=== PATIENT | female | born 1965 | race Caucasian/White ===

== ENCOUNTER 2020-10-20 10:30 | Observation (INO) | payer BC ==
[~2020-10-20 10:30] MED LIST: Acetaminophen 1,000 MG in Premix Bag 1 BAG IV ONE; Lactated Ringers 1,000 ML IV SCH; Propofol 200 MG/20 ML SDV ONE; cefOXitin 2 GM in Premix Bag 1 BAG IV ONE
[2020-10-20] MEDS ORDERED: Propofol 200 MG/20 ML SDV ONE (10:39)
[2020-10-20] MEDS ORDERED: fentaNYL 100 MCG/2 ML SDV ONE ×2 (10:39→11:52)
[2020-10-20] MEDS ORDERED: Midazolam 1 MG/ML 2 ML SDV ONE (10:40)
[2020-10-20] MEDS: Pregabalin 75 MG Cap PO SCH (10:40)
[2020-10-20] MEDS ORDERED: Acetaminophen 1,000 MG in Premix Bag 1 BAG IV ONE ×2 (10:45→15:15)
--- NOTE | 2020-10-20 11:31 | PCM.PREANE ---
Preanesthetic Assessment - Anesthesia/Transfusion/Family Hx Anesthesia History: Prior Anesthesia Without Reaction Family History of Anesthesia Reaction: No Transfusion History: No Prior Transfusion(s) Intubation History: Unknown - Review of Systems General: No Symptoms Pulmonary: No Symptoms Cardiovascular: No Symptoms Gastrointestinal: No Symptoms Neurological: No Symptoms Other: Reports: None - Physical Assessment Vital Signs: Last Vital Signs Temp Pulse 81 10/20/20 10:40 Resp 16 10/20/20 10:40 BP 164/87 H 10/20/20 11:10 Pulse Ox 96 10/20/20 10:40 Height: 5 ft 1 in Weight: 125.192 kg ASA Class: 3 Mental Status: Alert & Oriented x3 Airway Class: Mallampati = 2 Dentition: Reports: Normal Dentition Thyro-Mental Finger Breadths: 3 Mouth Opening Finger Breadths: 3 ROM/Head Extension: Full Lungs: Clear to Auscultation, Normal Respiratory Effort Cardiovascular: Regular Rate, Regular Rhythm - Lab Values: Laboratory Last Values Urine HCG, Qual NEGATIVE (NEGATIVE) 10/20/20 10:28 - Allergies Allergies/Adverse Reactions: Allergies Allergy/AdvReac Type Severity Reaction Status Date / Time No Known Allergies Allergy Verified 10/20/20 11:26 - Blood Blood Available: No - Anesthesia Plan Pre-Op Medication Ordered: None - Acknowledgements Anesthesia Type Planned: General Anesthesia Pt an Appropriate Candidate for the Planned Anesthesia: Yes Alternatives and Risks of Anesthesia Discussed w Pt/Guardian: Yes Pt/Guardian Understands and Agrees with Anesthesia Plan: Yes PreAnesthesia Questionnaire HEENT History: Reports: Other (See Below) Other HEENT History: wears glasses for driving and reading Cardiovascular History: Reports: Hypertension Respiratory History: Reports: Sleep Apnea Other Respiratory History: uses CPAP Gastrointestinal History: Reports: None Genitourinary History: Reports: None 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: Reports: Polycystic Ovaries, Musculoskeletal History: Reports: Fracture Neurological History: Reports: None Psychiatric History: Reports: None Endocrine/Metabolic History: Reports: Hypothyroidism, Obesity/BMI 30+ (BMI 52.1), Other (See Below) Other Endocrine/Metabolic History: prediabetic Hematologic History: Reports: None Immunologic History: Reports: None Oncologic (Cancer) History: Reports: None Dermatologic History: Reports: Other (See Below) Other Dermatologic History: open draining abd wound - Past Surgical History Head Surgeries/Procedures: Reports: None HEENT Surgical History: Reports: None Cardiovascular Surgical History: Reports: None Respiratory Surgical History: Reports: None GI Surgical History: Reports: Cholecystectomy, Hernia, Abdominal Other GI Surgeries/Procedures: hx ventral hernia repair Female Surgical History: Reports: Section Endocrine Surgical History: Reports: None Neurological Surgical History: Reports: None Musculoskeletal Surgical History: Reports: Arthroscopic Knee, Other (See Below) Other Musculoskeletal Surgeries/Procedures:: sx for fx right ankle Oncologic Surgical History: Reports: None Dermatological Surgical History: Reports: None - SUBSTANCE USE Tobacco Use Status *Q: Former Tobacco User Tobacco Use Within Last Twelve Months: No - HOME MEDS Home Medications: Home Meds Levothyroxine Sodium [Synthroid] 2 tab PO DAILY 10/15/20 [History] Losartan Potassium 100 mg PO DAILY 10/15/20 [History] Metoprolol Tartrate 50 mg PO BID 10/15/20 [History] hydroCHLOROthiazide [Hydrochlorothiazide] 25 mg PO DAILY 10/15/20 [History] metFORMIN HCl [Metformin HCl] 1,000 mg PO BID 10/15/20 [History] - CURRENT (IN HOUSE) MEDS Current Meds: Current Medications Lactated Ringer's (Ringers, Lactated) 1,000 mls @ 125 mls/hr IV ASDIRECTED [facility] Last Admin: 10/20/20 11:10 Dose: 125 mls/hr Documented by: Pregabalin (Lyrica) 150 mg PO DAILY [facility] Last Admin: 10/20/20 10:40 Dose: 150 mg Documented by: Discontinued Medications Fentanyl (Sublimaze) Confirm Administered Dose 100 mcg .ROUTE .STK-MED ONE Stop: 10/20/20 10:40 Cefoxitin Sodium 2 gm/ Premix 50 mls @ 100 mls/hr IV ONETIME ONE Stop: 10/19/20 10:56 Acetaminophen 1,000 mg/ Premix 100 mls @ 400 mls/hr IV NOW ONE Stop: 10/20/20 10:59 Last Admin: 10/20/20 11:10 Dose: 400 mls/hr Documented by: Lidocaine HCl (Xylocaine-Mpf 1%) Confirm Administered Dose 5 ml .ROUTE .STK-MED ONE Stop: 10/20/20 10:41 Midazolam HCl (Versed 1 Mg/Ml) Confirm Administered Dose 2 mg .ROUTE .STK-MED ONE Stop: 10/20/20 10:41 Propofol (Diprivan 20 Ml) Confirm Administered Dose 200 mg .ROUTE .STK-MED ONE Stop: 10/20/20 09:31 Propofol (Diprivan 20 Ml) Confirm Administered Dose 200 mg .ROUTE .STK-MED ONE Stop: 10/20/20 10:40
[2020-10-20] MEDS ORDERED: Bupivacaine 0.5% 10 ML SDV ONE (11:39)
[2020-10-20] MEDS ORDERED: Octyl 2-Cyanoacrylate 1 Tube ONE ×2 (11:39→11:50)
[2020-10-20] MEDS ORDERED: Scopolamine 1.5 MG Transdermal Patch ONE (11:44)
[2020-10-20] MEDS ORDERED: Succinylcholine/Sod PF 100 MG/5 ML SYRINGE IV ONE (11:49)
[2020-10-20] MEDS ORDERED: Rocuronium Bromide 50 MG/5 ML Syringe ONE (11:49)
[2020-10-20] MEDS ORDERED: Bupivacaine 25%/EPINEPHrine/PF 30 ML ONE (11:50)
[2020-10-20] MEDS ORDERED: Heparin Sodium 5,000 Units/ML Vial ONE (12:07)
[2020-10-20] MEDS ORDERED: ePHEDrine 50 MG/ML SDV ONE (12:41)
[2020-10-20] MEDS ORDERED: Naloxone 0.4 MG/ML Syringe IVPUSH PRN (13:39)
[2020-10-20] MEDS ORDERED: Albuterol 0.083% 2.5 MG/3 ML Neb Soln NEB PRN (13:39)
[2020-10-20] MEDS ORDERED: EPINEPHrine 1:10,000 1 MG/10 ML Syringe IVPUSH PRN (13:39)
[2020-10-20] MEDS ORDERED: 50% Dextrose in Water 50 ML Syringe IVPUSH PRN (13:39)
[2020-10-20] MEDS ORDERED: fentaNYL 100 MCG/2 ML SDV IVPUSH PRN (13:39)
[2020-10-20] MEDS ORDERED: Atropine 0.1 MG/ML 10 ML Syringe IVPUSH PRN ×2 (13:39)
[2020-10-20] MEDS ORDERED: Ondansetron 4 MG/2 ML SDV IVPUSH PRN ×2 (13:42→15:14)
[2020-10-20] MEDS ORDERED: HYDROmorphone 2 MG/ML Syringe IVPUSH PRN (13:42)
[2020-10-20] MEDS ORDERED: HYDROmorphone 2 MG/ML Syringe ONE (14:20)
[2020-10-20] MEDS ORDERED: Glycopyrrolate 0.2 MG/ML SDV ONE (14:30)
[2020-10-20] MEDS ORDERED: Ketorolac 30 MG/ML SDV ONE (14:31)
--- NOTE | 2020-10-20 15:14 | PCM.OPNOTE ---
- General Post-Op/Procedure Note Date of Surgery/Procedure: 10/20/20 Operative Procedure(s): Small bowel resection, removal of chronic granulation tissue/abscess, repair of recurrent ventral hernia. Findings: abscess cavity with mesh in the middle. Small bowel also involved in the abscess cavity. 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
--- NOTE | 2020-10-20 16:27 | PCM.POSTAN ---
POST ANESTHESIA ASSESSMENT - MENTAL STATUS Mental Status: Alert, Oriented - VITAL SIGNS Vital Signs: Last Vital Signs Temp Pulse 63 10/20/20 16:09 Resp 19 10/20/20 16:09 BP 107/50 L 10/20/20 16:09 Pulse Ox 96 10/20/20 16:09 - RESPIRATORY Respiratory Status: Respiratory Rate WNL, Airway Patent, O2 Saturation Stable - CARDIOVASCULAR CV Status: Pulse Rate WNL, Blood Pressure Stable - GASTROINTESTINAL GI Status: No Symptoms - PAIN Pain Score: 4 - POST OP HYDRATION Hydration Status: Adequate & Stable - OBSERVATIONS Free Text/Narrative:: No anesthesia problems
[2020-10-20] MEDS: cefOXitin 2 GM in Premix Bag 1 BAG IV SCH ×2 (17:25→21:48)
[2020-10-20] MEDS ORDERED: 50% Dextrose in Water 50 ML Syringe IV PRN (17:35)
[2020-10-20] MEDS ORDERED: Glucagon,Human Recombinant 1 MG Vial IM PRN (17:35)
--- NOTE | 2020-10-20 17:45 | PCM.CONS ---
H&P History of Present Illness - General Date of Service: 10/20/20 Admit Problem/Dx: Admission Diagnosis/Problem Admission Diagnosis/Problem Abscess of abdominal wall Source of Information: Patient History Limitations: Reports: No Limitations - History of Present Illness Initial Comments - Free Text/Narative: 55-year-old female s/p recurrent ventral hernia repair, removal of infected mesh and partial colectomy POD#0. She has a PMH of DM type 2, HTN and hypothyroidism. Patient reports having an umbilical hernia repair approximately 10 years ago in [place]. For the past 5 years she has had occasional umbilical foul-smelling drainage. CT abd/pelvis showed recurrent hernia above the prior repair as well as a 3.2 cm x 2.8 cm rim enhancing fluid collection draining near the umbilicus. Prior mesh placement also appeared to be in the abscess/fluid collection. Patient was seen at bedside today post-operatively and had no complaints at this time. Patient did not complain of any fevers, chills, SOB, chest pain, nausea, vomiting, numbness or tingling in extremities. - Related Data Allergies/Adverse Reactions: Allergies Allergy/AdvReac Type Severity Reaction Status Date / Time No Known Allergies Allergy Verified 10/20/20 11:26 Home Medications: Home Meds Levothyroxine Sodium [Synthroid] 2 tab PO DAILY 10/15/20 [History] Losartan Potassium 100 mg PO DAILY 10/15/20 [History] Metoprolol Tartrate 50 mg PO BID 10/15/20 [History] hydroCHLOROthiazide [Hydrochlorothiazide] 25 mg PO DAILY 10/15/20 [History] metFORMIN HCl [Metformin HCl] 1,000 mg PO BID 10/15/20 [History] Past Medical History HEENT History: Reports: Other (See Below) Other HEENT History: wears glasses for driving and reading Cardiovascular History: Reports: Hypertension Respiratory History: Reports: Sleep Apnea Other Respiratory History: uses CPAP Gastrointestinal History: Reports: None Genitourinary History: Reports: None 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: Polycystic 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, Musculoskeletal History: Reports: Fracture Neurological History: Reports: None Psychiatric History: Reports: None Endocrine/Metabolic History: Reports: Hypothyroidism, Obesity/BMI 30+ (BMI 52.1), Other (See Below) Other Endocrine/Metabolic History: prediabetic Hematologic History: Reports: None Immunologic History: Reports: None Oncologic (Cancer) History: Reports: None Dermatologic History: Reports: Other (See Below) Other Dermatologic History: open draining abd wound - Past Surgical History Head Surgeries/Procedures: Reports: None HEENT Surgical History: Reports: None Cardiovascular Surgical History: Reports: None Respiratory Surgical History: Reports: None GI Surgical History: Reports: Cholecystectomy, Hernia, Abdominal Other GI Surgeries/Procedures: hx ventral hernia repair Female Surgical History: Reports: Section Endocrine Surgical History: Reports: None Neurological Surgical History: Reports: None Musculoskeletal Surgical History: Reports: Arthroscopic Knee, Other (See Below) Other Musculoskeletal Surgeries/Procedures:: sx for fx right ankle Oncologic Surgical History: Reports: None Dermatological Surgical History: Reports: None Social & Family History - Tobacco Use Tobacco Use Status *Q: Former Tobacco User Years of Tobacco use: 20 Used Tobacco, but Quit: Yes Month/Year Tobacco Last Used: quit smoking over 8 years ago - Recreational Drug Use Drug Use in Last 12 Months: No H&P Review of Systems - Review of Systems: Review Of Systems: See Below Exam - Exam Exam: See Below - Vital Signs Vital Signs: Last Vital Signs Temp Pulse 63 10/20/20 16:09 Resp 19 10/20/20 16:09 BP 107/50 L 10/20/20 16:09 Pulse Ox 96 10/20/20 17:00 Weight: 125.192 kg - Exam General: Alert, Oriented, Cooperative, Other (NAD) HEENT: Conjunctiva Clear, EOMI, Hearing Intact, Pupils Equal Lungs: Clear to Auscultation, Normal Respiratory Effort Cardiovascular: Regular Rate, Regular Rhythm GI/Abdominal Exam: Normal Bowel Sounds, Soft, No Distention, Other (LAWSON drain in place, abdominal binder in place) (Female) Exam: Other (Doss catheter) Extremities: Normal Inspection, No Pedal Edema Peripheral Pulses: 2+: Radial (L), Radial (R) Skin: Warm, Dry, Intact Neurological: Cranial Nerves Intact, Strength Equal Bilateral, Normal Speech, Normal Tone Neuro Extensive - Mental Status: Alert, Oriented x3, Normal Mood/Affect - Patient Data Lab Results Last 24 hrs: Laboratory Results - last 24 hr 10/20/20 10/20/20 10/20/20 Range/Units 10:28 11:09 11:50 POC Glucose 108 (60-110) mg/dL Urine HCG, Qual NEGATIVE (NEGATIVE) Blood Type A POSITIVE Antibody Screen NEGATIVE 10/20/20 Range/Units 15:46 POC Glucose 131 H (60-110) mg/dL Urine HCG, Qual (NEGATIVE) Blood Type Antibody Screen Sepsis Event Note - Focused Exam Vital Signs: Vital Signs Pulse Resp BP Pulse Ox Pulse Ox Pulse Ox 10/20/20 17:00 96 96 10/20/20 16:09 63 19 107/50 L 96 10/20/20 16:04 62 19 116/49 L 97 10/20/20 15:59 65 22 H 116/57 L 98 10/20/20 15:53 60 15 109/57 L 98 10/20/20 15:49 71 16 118/54 L 97 10/20/20 15:43 75 12 112/51 L 97 10/20/20 15:39 72 20 109/54 L 98 10/20/20 15:34 81 16 104/54 L 97 10/20/20 15:29 62 15 104/57 L 95 10/20/20 15:24 65 20 126/70 95 10/20/20 15:18 68 24 H 127/67 96 10/20/20 15:13 62 21 H 121/67 96 10/20/20 11:10 164/87 H 10/20/20 10:40 81 16 167/103 H 96 Consult PN Assessment/Plan Procedures: Procedures ASSAY THYROID STIM HORMONE (10/14/20) COMPLETE CBC W/AUTO DIFF WBC (10/14/20) COMPREHEN METABOLIC PANEL (10/14/20) CT ABD & PELV W/CONTRAST (09/23/20) CT ABDOMEN W/O & W/DYE (07/01/20) CULTURE AEROBIC IDENTIFY (09/16/20) CULTURE OTHR SPECIMN AEROBIC (09/16/20) GLYCOSYLATED HEMOGLOBIN TEST (01/20/20) LIPID PANEL (01/20/20) METABOLIC PANEL TOTAL CA (06/28/20) MICROBE SUSCEPTIBLE MILAD (09/16/20) ROUTINE VENIPUNCTURE (10/14/20) SARS-COV-2 COVID-19 AMP PRB (10/16/20) SMEAR GRAM STAIN (07/15/20) TISSUE EXAM BY PATHOLOGIST (09/09/20) URINALYSIS AUTO W/O SCOPE (10/14/20) URINE BACTERIA CULTURE (07/15/20) X-RAY EXAM CHEST 2 VIEWS (02/03/21) Problem List Initiated/Reviewed/Updated: Yes My Orders Last 24 Hours: My Active Orders 10/20/20 17:35 Dextrose 50% in Water 50 ml IV ASDIRECTED PRN Glucagon,Human Recombinant [GlucaGen] 1 mg IM ASDIRECTED PRN 10/21/20 07:30 Insulin Aspart [NovoLOG] See Protocol SUBCUT TIDAC Plan: Assessment and Plan: 1. S/P recurrent ventral hernia repair, removal of infected mesh and partial colectomy POD#0: - Continue management per general surgery. Patient currently on clear liquid diet. 2. Diabetes mellitus type II: - Will hold metformin. Patient on SSI and accuchecks TIDAC. Will check HgbA1c. 3. Past medical history of HTN and hypothyroidism: - Resume home medications tomorrow. 4. DVT prophylaxis: - Lovenox 30 mg subcut qd per general surgery.
--- NOTE | 2020-10-20 19:53 | OR ---
SURGEON: DONATO HART MD DATE OF PROCEDURE: 10/20/2020 PREOPERATIVE DIAGNOSES: Chronic abscess cavity and likely infected mesh. POSTOPERATIVE DIAGNOSES: Chronic abscess cavity and likely infected mesh. PROCEDURES PERFORMED: 1. Small bowel resection. 2. Removal of chronic granulation/abscess tissue. 3. Primarily repairing recurrent ventral hernia. PRIMARY SURGEON: Donato Hart MD. YARN EXAMINER SKEINS: Laura Mims MD. ANESTHESIA: General. ESTIMATED BLOOD LOSS: 350. SPECIMENS: 1. Small bowel resection. 2. Mesh. 3. Chronic granulation abscess tissue. 4. Part of omentum. COMPLICATIONS: None. REASON FOR PROCEDURE: Patient is a pleasant 55-year-old female. She says about 9 to 10 years ago, she had an umbilical hernia repair that resulted in large seroma that sounds like needed to be packed. This healed, but then in the past 8 years, she will get chronic from umbilicus. This comes and goes, but has gotten much more frequent recently. Now, we did try to open up this chronic abscess, but on CT scan does look to have likely mesh involvement. The patient always had a possibility of a fistula formation too. The patient understands. I did go over with the patient again risks, goals, and alternatives of procedure. Risks include, but not limited to, bleeding, infection, dehiscence, recurrence, need for small bowel resection, possible loss of umbilicus, scar formation, seroma formation, hematoma. The patient understands and wishes to proceed. OPERATION NARRATIVE: The patient was brought back to the OR. She was prepped and draped in the usual sterile fashion. Doss catheter placed. SCDs placed. Heparin and preoperative antibiotics were given. Anesthesia provided by the Anesthesia team. After a time-out was performed, a midline incision was made around the umbilicus. A small elliptical incision was made to cut out the chronic granulation tissue underneath the skin underneath the umbilicus. This was carried down to the subcutaneous tissue. First, we dissected superiorly and the recurrent hernia was found. This was then cleared and the fascia around the hernia was cleared and down around where the chronic abscess was. Now, the abdominal cavity was entered through the hernia sac. The omentum was carefully taken down. Now with some very careful dissection, I was able to get the small bowel down from the anterior wall. The abscess cavity actually appeared to be involving the mesh and the small bowel was up against it forming part of the chronic abscess wall. As we opened up the cavity, the mesh actually came out fairly easily. It looks like it was a circular mesh that was sutured in place with multiple blue Prolenes. It looked we got most of these out and came out fairly easily. Now the small bowel was inspected. There was an area that was involved in the abscess cavity. This was fairly injured. It did appear to be potentially a small tear. Because of this, we decided to remove this section of small bowel. Small bowel was transected on both sides with a blue load linear stapler. The mesentery was taken with the LigaSure. There was good hemostasis. Now, the small enterotomies were made at the staple line on both ends, and another blue load linear stapler 55 was placed making a [id number] functional end-to-end anastomosis. Enterotomy was then closed with a running 3-0 Vicryl and a top layer of interrupted silks. 1 silk suture was placed for a crotch stitch and the mesenteric defect was also closed with silk. The small bowel appeared patent. There was good hemostasis. The bowel appeared viable and under no tension. Small bowel was then partially ran. No other small-bowel injury or defect was noted. There was some smaller adhesions that were taken down. Now, the small bowel was placed back into the abdominal cavity. The omentum that was up in the hernia defect was then transected with LigaSure and sent to pathology. Now, we did look at the thick scar/granulation tissue that had formed. This tissue was then thinned taking a majority of the chronic granulation scar tissue. I did enter our cavity that had purulent material. Again, this was completely removed and irrigated. This was sent to Pathology. Again, there still was some thick scar tissue, but it looked like we got most of the chronic infection and granulation tissue away. Now, the bowels were inspected one more time. The rest of the omentum was placed over the small bowel and the defect was then closed with multiple interrupted [id number]- Vicryl and scar tissue did appear to come together nicely with no tension. The cavity was then irrigated. Now, a LAWSON drain was placed in the subcutaneous tissue. Skin was then closed with jim and a NICHELLE dressing was placed over top. At the end of the case, sponge and needle counts were correct. The patient was transferred to recovery room in stable condition. KOBE BAHENA /[id number]
[2020-10-20] MEDS: HYDROmorphone 2 MG/ML Syringe IVPUSH PRN (21:08)
[2020-10-21] MEDS: HYDROmorphone 2 MG/ML Syringe IVPUSH PRN (03:52)
[2020-10-21] MEDS: cefOXitin 2 GM in Premix Bag 1 BAG IV SCH ×3 (03:53→15:39)
[2020-10-21 06:00] LABS: HEMOGLOBIN A1C 6.5 %
[2020-10-21 06:10] LABS: POTASSIUM,K 3.7 mmol/L (3.5-5.1)
[2020-10-21] MEDS ORDERED: LEVOTHYROXINE PO SCH ×2 (07:30)
--- NOTE | 2020-10-21 07:51 | PCM48HPAN ---
Post Anesthesia Note - EVALUATION WITHIN 48HRS OF ANESTHETIC Vital Signs in Normal Range: Yes Patient Participated in Evaluation: Yes Respiratory Function Stable: Yes Airway Patent: Yes Cardiovascular Function Stable: Yes Hydration Status Stable: Yes Pain Control Satisfactory: Yes (6/10 pain decreases to 2/10 with PO meds, satisfactory control) Nausea and Vomiting Control Satisfactory: Yes (Taking PO well, denies nausea) Mental Status Recovered: Yes Vital Signs: Last Vital Signs Temp 36.7 C 10/21/20 07:36 Pulse 83 10/21/20 07:36 Resp 20 10/21/20 07:36 BP 124/68 10/21/20 07:36 Pulse Ox 94 L 10/21/20 07:36
[2020-10-21] MEDS: Pregabalin 75 MG Cap PO SCH (08:13)
[2020-10-21] MEDS: Insulin Aspart 100 Units/ML 3 ML Pen SUBCUT SCH ×3 (08:15→16:49)
[2020-10-21] MEDS ORDERED: Losartan 50 MG Tab PO SCH (09:00)
[2020-10-21] MEDS ORDERED: Metoprolol Tartrate 50 MG Tab PO SCH (09:00)
[2020-10-21] MEDS ORDERED: Lactated Ringers 1,000 ML IV SCH (09:00)
[2020-10-21] MEDS ORDERED: Omeprazole 20 MG Cap.CR PO SCH (09:00)
[2020-10-21] MEDS ORDERED: Enoxaparin 30 MG/0.3 ML Syringe SUBCUT SCH (09:00)
[2020-10-21] MEDS ORDERED: Hydrochlorothiazide 25 MG Tab PO SCH (09:00)
[2020-10-21] MEDS ORDERED: LEVOTHYROXINE SODIUM PO SCH (09:00)
[2020-10-21] MEDS: Benzocaine/Cetylpyridinium/Menthol Lozenge MUCMEM PRN ×2 (09:37→15:39)
--- NOTE | 2020-10-21 11:25 | PN ---
SUBJECTIVE: The patient did well overnight. She has no complaints. She says her pain is well controlled. The patient did tolerate her clear liquid diet for supper and breakfast. No nausea and vomiting. She has not passed any flatus yet though. Doss is still in place. The patient has been up in chair. Overall, the patient feels very good and has no complaints. OBJECTIVE: GENERAL: The patient is lying comfortably in her hospital bed. She is alert and oriented, in no acute distress. VITAL SIGNS: Temperature is 98, pulse is 83, blood pressure is 124/68, saturating 94% on 2 L . LUNGS: Clear to auscultation bilaterally. No rhonchi or wheezing heard. HEART: Regular rhythm. No murmur appreciated. ABDOMEN: Soft, nondistended. Just some minimal incisional tenderness. NICHELLE dressing is intact. LAWSON with some serosanguineous output. Output from LAWSON drain was about 65 from surgery. ASSESSMENT AND PLAN: This is a pleasant 55-year-old female who underwent excision of a chronic infected abscess mesh yesterday with a small bowel resection. The patient is doing well. She is tolerating her diet. This will be advance as tolerated. The patient should ambulate today. Doss will come out and we will start oral pain medications. I did go over the surgery with the patient. I answered her questions. I went over when she is passing flatus and tolerating oral pain medicines hopefully home tomorrow or next day. Discussed with nursing staff. Appreciate Medicine consult. KOBE / SHRUTI /[id number]
[2020-10-21] MEDS: Acetaminophen/HYDROcodone 325-5 MG Tab PO PRN ×2 (11:45→15:39)
--- NOTE | 2020-10-21 12:28 | PCM.CONSN ---
- General Info Date of Service: 10/21/20 Subjective Update: No complaints at bedside this morning. Denies any fevers, chills, SOB, nausea, vomiting or pain. - Patient Data Vitals - Most Recent: Last Vital Signs Temp 36.7 C 10/21/20 11:15 Pulse 79 10/21/20 11:15 Resp 22 H 10/21/20 11:15 BP 108/68 10/21/20 11:15 Pulse Ox 94 L 10/21/20 11:15 Weight - Most Recent: 125.192 kg I&O - Last 24 Hours: Intake & Output 10/20/20 10/21/20 10/21/20 22:59 06:59 14:59 Intake Total 3600 1080 Output Total 285 925 Balance 3315 155 Lab Results Last 24 Hours: Laboratory Results - last 24 hr 10/20/20 10/20/20 10/20/20 Range/Units 11:09 11:50 15:46 WBC (4.0-11.0) K/uL RBC (4.30-5.90) M/uL Hgb (12.0-16.0) g/dL Hct (36.0-46.0) % MCV (80.0-98.0) fL MCH (27.0-32.0) pg MCHC (31.0-37.0) g/dL RDW Std Deviation (28.0-62.0) fl RDW Coeff of Hitesh (11.0-15.0) % Plt Count (150-400) K/uL MPV (7.40-12.00) fL Neut % (Auto) (48.0-80.0) % Lymph % (Auto) (16.0-40.0) % Placer % (Auto) (0.0-15.0) % Eos % (Auto) (0.0-7.0) % Baso % (Auto) (0.0-1.5) % Neut # (Auto) (1.4-5.7) K/uL Lymph # (Auto) (0.6-2.4) K/uL Placer # (Auto) (0.0-0.8) K/uL Eos # (Auto) (0.0-0.7) K/uL Baso # (Auto) (0.0-0.1) K/uL Nucleated RBC % /100WBC Nucleated RBCs # K/uL Sodium (136-145) mmol/L Potassium (3.5-5.1) mmol/L Chloride (98-107) mmol/L Carbon Dioxide (21.0-32.0) mmol/L BUN (7.0-18.0) mg/dL Creatinine (0.6-1.0) mg/dL Est Cr Clr Drug Dosing mL/min Estimated GFR (MDRD) ml/min Glucose (74-106) mg/dL POC Glucose 108 131 H (60-110) mg/dL Hemoglobin A1c (4.5 - 6.2) % Calcium (8.5-10.1) mg/dL Total Bilirubin (0.2-1.0) mg/dL AST (15-37) IU/L ALT (14-63) IU/L Alkaline Phosphatase (46-116) U/L Total Protein (6.4-8.2) g/dL Albumin (3.4-5.0) g/dL Globulin (2.6-4.0) g/dL Albumin/Globulin Ratio (0.9-1.6) Blood Type A POSITIVE Antibody Screen NEGATIVE 10/21/20 10/21/20 10/21/20 Range/Units 05:08 05:08 05:08 WBC 13.80 H (4.0-11.0) K/uL RBC 3.90 L (4.30-5.90) M/uL Hgb 11.2 L (12.0-16.0) g/dL Hct 34.9 L (36.0-46.0) % MCV 89.5 (80.0-98.0) fL MCH 28.7 (27.0-32.0) pg MCHC 32.1 (31.0-37.0) g/dL RDW Std Deviation 45.9 (28.0-62.0) fl RDW Coeff of Hitesh 14 (11.0-15.0) % Plt Count 270 (150-400) K/uL MPV 11.70 (7.40-12.00) fL Neut % (Auto) 87.7 H (48.0-80.0) % Lymph % (Auto) 5.7 L (16.0-40.0) % Placer % (Auto) 6.4 (0.0-15.0) % Eos % (Auto) 0.2 (0.0-7.0) % Baso % (Auto) 0.0 (0.0-1.5) % Neut # (Auto) 12.1 H (1.4-5.7) K/uL Lymph # (Auto) 0.8 (0.6-2.4) K/uL Placer # (Auto) 0.9 H (0.0-0.8) K/uL Eos # (Auto) 0.0 (0.0-0.7) K/uL Baso # (Auto) 0.0 (0.0-0.1) K/uL Nucleated RBC % 0.0 /100WBC Nucleated RBCs # 0 K/uL Sodium 139 (136-145) mmol/L Potassium 3.7 (3.5-5.1) mmol/L Chloride 103 (98-107) mmol/L Carbon Dioxide 29.0 (21.0-32.0) mmol/L BUN 13 (7.0-18.0) mg/dL Creatinine 1.0 (0.6-1.0) mg/dL Est Cr Clr Drug Dosing 47.97 mL/min Estimated GFR (MDRD) 57.6 ml/min Glucose 163 H (74-106) mg/dL POC Glucose (60-110) mg/dL Hemoglobin A1c 6.5 H (4.5 - 6.2) % Calcium 7.9 L (8.5-10.1) mg/dL Total Bilirubin 0.5 (0.2-1.0) mg/dL AST 14 L (15-37) IU/L ALT 23 (14-63) IU/L Alkaline Phosphatase 53 (46-116) U/L Total Protein 6.1 L (6.4-8.2) g/dL Albumin 2.5 L (3.4-5.0) g/dL Globulin 3.6 (2.6-4.0) g/dL Albumin/Globulin Ratio 0.7 L (0.9-1.6) Blood Type Antibody Screen 10/21/20 10/21/20 Range/Units 06:20 11:30 WBC (4.0-11.0) K/uL RBC (4.30-5.90) M/uL Hgb (12.0-16.0) g/dL Hct (36.0-46.0) % MCV (80.0-98.0) fL MCH (27.0-32.0) pg MCHC (31.0-37.0) g/dL RDW Std Deviation (28.0-62.0) fl RDW Coeff of Hitesh (11.0-15.0) % Plt Count (150-400) K/uL MPV (7.40-12.00) fL Neut % (Auto) (48.0-80.0) % Lymph % (Auto) (16.0-40.0) % Placer % (Auto) (0.0-15.0) % Eos % (Auto) (0.0-7.0) % Baso % (Auto) (0.0-1.5) % Neut # (Auto) (1.4-5.7) K/uL Lymph # (Auto) (0.6-2.4) K/uL Placer # (Auto) (0.0-0.8) K/uL Eos # (Auto) (0.0-0.7) K/uL Baso # (Auto) (0.0-0.1) K/uL Nucleated RBC % /100WBC Nucleated RBCs # K/uL Sodium (136-145) mmol/L Potassium (3.5-5.1) mmol/L Chloride (98-107) mmol/L Carbon Dioxide (21.0-32.0) mmol/L BUN (7.0-18.0) mg/dL Creatinine (0.6-1.0) mg/dL Est Cr Clr Drug Dosing mL/min Estimated GFR (MDRD) ml/min Glucose (74-106) mg/dL POC Glucose 144 H 148 H (60-110) mg/dL Hemoglobin A1c (4.5 - 6.2) % Calcium (8.5-10.1) mg/dL Total Bilirubin (0.2-1.0) mg/dL AST (15-37) IU/L ALT (14-63) IU/L Alkaline Phosphatase (46-116) U/L Total Protein (6.4-8.2) g/dL Albumin (3.4-5.0) g/dL Globulin (2.6-4.0) g/dL Albumin/Globulin Ratio (0.9-1.6) Blood Type Antibody Screen Med Orders - Current: Current Medications Hydrocodone Bitart/Acetaminophen ([place] 325-5 Mg) 1 - 2 tab PO Q4H PRN PRN Reason: Pain Last Admin: 10/21/20 11:45 Dose: 1 tab Documented by: Benzocaine/Menthol (Cepacol Sore Throat) 1 lozenge MUCMEM Q4HR PRN PRN Reason: Sore Throat Last Admin: 10/21/20 09:37 Dose: 1 lozenge Documented by: Dextrose/Water (Dextrose 50% In Water) 50 ml IV ASDIRECTED PRN PRN Reason: Hypoglycemia Enoxaparin Sodium (Lovenox) 30 mg SUBCUT DAILY [facility] Last Admin: 10/21/20 08:14 Dose: 30 mg Documented by: Glucagon (Glucagen) 1 mg IM ASDIRECTED PRN PRN Reason: Hypoglycemia Hydrochlorothiazide (Hydrochlorothiazide) 25 mg PO DAILY [facility] Last Admin: 10/21/20 08:13 Dose: 25 mg Documented by: Hydromorphone HCl (Dilaudid) 0.5 mg IVPUSH Q1H PRN PRN Reason: Pain (severe 7-10) Last Admin: 10/21/20 03:52 Dose: 0.5 mg Documented by: Cefoxitin Sodium 2 gm/ Premix 50 mls @ 100 mls/hr IV Q6H [facility] Last Admin: 10/21/20 11:32 Dose: 100 mls/hr Documented by: Lactated Ringer's (Ringers, Lactated) 1,000 mls @ 75 mls/hr IV ASDIRECTED [facility] Insulin Aspart (Novolog) 0 unit SUBCUT TIDAC [facility]; Protocol Last Admin: 10/21/20 11:32 Dose: Not Given Documented by: Levothyroxine Sodium 224 mcg/ (Levothyroxine Sodium 50 mcg) 274 mcg PO ACBREAKFAST [facility] Last Admin: 10/21/20 08:12 Dose: 274 mcg Documented by: Losartan Potassium (Cozaar) 100 mg PO DAILY [facility] Last Admin: 10/21/20 08:14 Dose: 100 mg Documented by: Metoprolol Tartrate (Lopressor) 50 mg PO BID [facility] Last Admin: 10/21/20 08:14 Dose: 50 mg Documented by: Omeprazole (Omeprazole) 20 mg PO DAILY [facility] Last Admin: 10/21/20 08:13 Dose: 20 mg Documented by: Ondansetron HCl (Zofran) 4 mg IVPUSH Q6H PRN PRN Reason: Nausea/Vomiting Discontinued Medications Albuterol (Proventil Neb Soln) 2.5 mg NEB ONETIME PRN PRN Reason: Wheezing Atropine Sulfate (Atropine 0.1 Mg/Ml) 0.5 mg IVPUSH ASDIRECTED PRN PRN Reason: Hypo-perfusion Atropine Sulfate (Atropine 0.1 Mg/Ml) 1 mg IVPUSH ASDIRECTED PRN PRN Reason: Hypo-Perfusion Bupivacaine HCl (Sensorcaine-Mpf 0.5%) Confirm Administered Dose 10 ml .ROUTE .STK-MED ONE Stop: 10/20/20 11:40 Dextrose/Water (Dextrose 50% In Water) 50 ml IVPUSH ASDIRECTED PRN PRN Reason: Hypoglycemia Ephedrine Sulfate (Ephedrine Sulfate) Confirm Administered Dose 50 mg .ROUTE .STK-MED ONE Stop: 10/20/20 12:42 Epinephrine HCl (Epinephrine 1:10,000) 1 mg IVPUSH ASDIRECTED PRN PRN Reason: ACLS Guidelines Fentanyl (Sublimaze) Confirm Administered Dose 100 mcg .ROUTE .STK-MED ONE Stop: 10/20/20 10:40 Fentanyl (Sublimaze) Confirm Administered Dose 100 mcg .ROUTE .STK-MED ONE Stop: 10/20/20 11:53 Fentanyl (Sublimaze) 50 mcg IVPUSH Q5M PRN PRN Reason: Pain Glycopyrrolate (Robinul) Confirm Administered Dose 0.4 mg .ROUTE .STK-MED ONE Stop: 10/20/20 14:31 Heparin Sodium (Porcine) (Heparin Sodium) Confirm Administered Dose 5,000 units .ROUTE .STK-MED ONE Stop: 10/20/20 12:08 Hydromorphone HCl (Dilaudid) 0.5 mg IVPUSH .Q5MIN PRN PRN Reason: Pain (severe 7-10) Stop: 10/21/20 13:44 Hydromorphone HCl (Dilaudid) Confirm Administered Dose 0 mg .ROUTE .STK-MED ONE Stop: 10/20/20 14:21 Cefoxitin Sodium 2 gm/ Premix 50 mls @ 100 mls/hr IV ONETIME ONE Stop: 10/19/20 10:56 Last Admin: 10/20/20 20:58 Dose: Not Given Documented by: Lactated Ringer's (Ringers, Lactated) 1,000 mls @ 125 mls/hr IV ASDIRECTED [facility] Last Admin: 10/20/20 11:10 Dose: 125 mls/hr Documented by: Acetaminophen 1,000 mg/ Premix 100 mls @ 400 mls/hr IV NOW ONE Stop: 10/20/20 10:59 Last Admin: 10/20/20 11:10 Dose: 400 mls/hr Documented by: Bupivacaine HCl/Epinephrine Bitart (Sensorc Mpf 0.25%-Epi [id number]) Confirm Administered Dose 30 mls @ as directed .ROUTE .STK-MED ONE Stop: 10/20/20 11:51 Acetaminophen 1,000 mg/ Premix 100 mls @ 400 mls/hr IV ONETIME ONE Stop: 10/20/20 15:29 Last Admin: 10/20/20 15:55 Dose: 400 mls/hr Documented by: Ketorolac Tromethamine (Toradol) Confirm Administered Dose 30 mg .ROUTE .STK-MED ONE Stop: 10/20/20 14:32 Lidocaine HCl (Xylocaine-Mpf 1%) Confirm Administered Dose 5 ml .ROUTE .STK-MED ONE Stop: 10/20/20 10:41 Midazolam HCl (Versed 1 Mg/Ml) Confirm Administered Dose 2 mg .ROUTE .STK-MED ONE Stop: 10/20/20 10:41 Naloxone HCl (Narcan) 0.1 mg IVPUSH ASDIRECTED PRN PRN Reason: Respiratory Depression Octyl Cyanoacrylate (Dermabond Advance) Confirm Administered Dose 0 applic .ROUTE .STK-MED ONE Stop: 10/20/20 11:40 Octyl Cyanoacrylate (Dermabond Advance) Confirm Administered Dose 1 applic .ROUTE .STK-MED ONE Stop: 10/20/20 11:51 Ondansetron HCl (Zofran) 4 mg IVPUSH ONETIME PRN PRN Reason: Nausea/Vomiting Pregabalin (Lyrica) 150 mg PO DAILY [facility] Last Admin: 10/21/20 08:13 Dose: 150 mg Documented by: Propofol (Diprivan 20 Ml) Confirm Administered Dose 0 mg .ROUTE .STK-MED ONE Stop: 10/20/20 09:31 Propofol (Diprivan 20 Ml) Confirm Administered Dose 200 mg .ROUTE .STK-MED ONE Stop: 10/20/20 10:40 Rocuronium [place] (Rocuronium [place]) Confirm Administered Dose 50 mg .ROUTE .STK-MED ONE Stop: 10/20/20 11:50 Scopolamine (Transderm-Scop) Confirm Administered Dose 1.5 mg .ROUTE .STK-MED ONE Stop: 10/20/20 11:45 - Exam General: Alert, Oriented, Cooperative, No Acute Distress Lungs: Clear to Auscultation, Normal Respiratory Effort Cardiovascular: Regular Rate, Regular Rhythm GI/Abdominal Exam: Normal Bowel Sounds, Soft, No Distention, Other (LAWSON drain in place, binder in place) Extremities: Normal Inspection, No Pedal Edema Sepsis Event Note - Evaluation Sepsis Screening Result: No Definite Risk - Focused Exam Vital Signs: Vital Signs Temp Pulse Pulse Resp BP BP Pulse Ox 10/21/20 11:15 36.7 C 79 22 H 108/68 94 L 10/21/20 10:28 95 10/21/20 08:14 83 124/68 10/21/20 07:36 36.7 C 83 20 124/68 94 L 10/21/20 04:07 36.8 C 83 15 103/57 L 92 L Consult PN Assessment/Plan Procedures: Procedures ASSAY THYROID STIM HORMONE (10/14/20) COMPLETE CBC W/AUTO DIFF WBC (10/14/20) COMPREHEN METABOLIC PANEL (10/14/20) CT ABD & PELV W/CONTRAST (09/23/20) CT ABDOMEN W/O & W/DYE (07/01/20) CULTURE AEROBIC IDENTIFY (09/16/20) CULTURE OTHR SPECIMN AEROBIC (09/16/20) GLYCOSYLATED HEMOGLOBIN TEST (01/20/20) LIPID PANEL (01/20/20) METABOLIC PANEL TOTAL CA (06/28/20) MICROBE SUSCEPTIBLE MIALD (09/16/20) ROUTINE VENIPUNCTURE (10/14/20) SARS-COV-2 COVID-19 AMP PRB (10/16/20) SMEAR GRAM STAIN (07/15/20) TISSUE EXAM BY PATHOLOGIST (09/09/20) URINALYSIS AUTO W/O SCOPE (10/14/20) URINE BACTERIA CULTURE (07/15/20) X-RAY EXAM CHEST 2 VIEWS (10/14/20) Problem List Initiated/Reviewed/Updated: Yes My Orders Last 24 Hours: My Active Orders 10/20/20 17:35 Dextrose 50% in Water 50 ml IV ASDIRECTED PRN Glucagon,Human Recombinant [GlucaGen] 1 mg IM ASDIRECTED PRN 10/21/20 07:30 Insulin Aspart [NovoLOG] See Protocol SUBCUT TIDAC 10/21/20 08:59 Benzocaine/Cetylpyrd/Menthol [Cepacol Sore Throat] 1 lozenge MUCMEM Q4HR PRN Plan: Assessment and Plan: 1. S/P recurrent ventral hernia repair, removal of infected mesh and partial small bowel resection POD#1: - Continue management per general surgery. Diet per general surgery. 2. Diabetes mellitus type II: - Patient on SSI and accuchecks TIDAC. HgbA1c 6.5. Will continue to monitor. - Metformin held on admission. 3. Past medical history of HTN and hypothyroidism: - Resume home medications. 4. DVT prophylaxis: - Lovenox 30 mg subcut qd per general surgery.
--- NOTE | 2020-10-22 10:27 | PN ---
SUBJECTIVE: The patient has had a good day. I did check on her again this afternoon. The patient says that she has been tolerating her diet. Her pain is controlled with her oral pain pills. She has been up and ambulating in the hallways easily. She has also had her Doss removed, has urinated, and she says she is now passing a lot of flatus. She denies any fevers or chills and feels very good. She would like to go home. OBJECTIVE: GENERAL: The patient is sitting comfortably in her hospital bed. She is alert and oriented, no acute distress. ABDOMEN: Soft and nondistended. Some very minimal incisional tenderness. NICHELLE dressing is intact. LAWSON with some serosanguineous output. ASSESSMENT AND PLAN: This is a pleasant 55-year-old female, status post removal of chronically infected piece of mesh and abscess. There was also small-bowel resection and repair of recurrent ventral hernia. She is doing well. She is tolerating her diet and reported that she is ambulating easily. Her pain is controlled with overall pain medications. She is passing a lot of flatus and the patient feels ready to go home. I did go over with the patient her discharge instructions again. She is to follow up in clinic on Monday, at that point, we will probably take off the NICHELLE dressing and remove LAWSON drain and she should monitor how much output is coming from LAWSON. She should give us a call if she has any fevers, chills, nausea, vomiting, any increase in drainage or change in drainage from the LAWSON tube. The patient understands. The patient should not shower. The patient will go home on some Bactrim for 7 days. She is also given some pain medications, Zocor. Otherwise, she will go home on her same home medications. All the patient's questions were answered. Also discussed with the nursing staff. KOBE BAHENA /[id number]
== END 2020-10-21 18:00 | disposition home or self-care (01) ==
LOC: MW.SDS 10:30 → MW.MS 15:51
PROVIDERS: ADMIT Internal Medicine; ATTEND Surgery
DX: K43.2 Incisional hernia without obstruction or gangrene (principal); L02.216 Cutaneous abscess of umbilicus; K63.2 Fistula of intestine; K66.0 Peritoneal adhesions (postprocedural) (postinfection); E03.9 Hypothyroidism, unspecified; E66.9 Obesity, unspecified; I10 Essential (primary) hypertension; E11.9 Type 2 diabetes mellitus without complications; Z68.43 Body mass index [BMI] 50.0-59.9, adult; Z98.890 Other specified postprocedural states; Z87.891 Personal history of nicotine dependence; Z79.899 Other long term (current) drug therapy
CPT/HCPCS: 36415; 44120; 49565; 80053; 81025; 82962; 83036; 85025; 86850; 86900; 86901; 88304; 88307; A9270; G0378; J0131; J0330; J0694; J1170; J1644; J1650; J1885; J2250; J2704; J3490; J7120; 00750; J3010